=== PATIENT | male | born 1945 | race Caucasian/White ===

== ENCOUNTER → 2016-11-19 | Outpatient (CLI) | payer MEDICARE, OTHER ==
[~2016-11-19] VITALS: Ht 180.3 cm; Wt 95.3 kg
[~2016-11-19] MED LIST: ASPI81TA85 PO; ATOR40TA PO; CART240C PO; CLON-404 PO; HYDR25TAB PO; INSUHUMDS SC; INSULADS INJ; LIDOCAINE 2% INJ 100 MG/5 ML SDV (FOR ANES.) As Ordered ONE; METF-415 PO; OMEP40CA2 PO; PROPOFOL 500 MG/50 ML VIAL As Ordered ONE; RAMI10CA PO; VITA500055 PO; ZYLO300T4 PO
--- NOTE | 2016-11-19 12:42 | ROOR ---
Patient Name: Gentry Rush Procedure Date: 11/19/2016 12:16 PM Date of : 1945 Age: 71 Room: [facility] Gender: Male Note Status: Finalized Procedure: Colonoscopy to Cecum + Cold Snare Polypectomy Indications: Screening for colorectal malignant neoplasm, Last colonoscopy: 2006 Providers: Michael Perez MD Referring MD: Javier Bejarano MD Requesting Provider: Medicines: Monitored Anesthesia Care Complications: No immediate complications. Procedure: Pre-Anesthesia Assessment: - The heart rate, respiratory rate, oxygen saturations, blood pressure, adequacy of pulmonary ventilation, and response to care were monitored throughout the procedure. The Colonoscope was introduced through the anus and advanced to the cecum, identified by appendiceal orifice and ileocecal valve. The colonoscopy was performed without difficulty. The patient tolerated the procedure well. The quality of the bowel preparation was excellent. Findings: The perianal and digital rectal examinations were normal. Non-bleeding internal hemorrhoids were found during retroflexion. The hemorrhoids were Grade I (internal hemorrhoids that do not prolapse). Multiple sessile polyps were found in the mid ascending colon. The polyps were small in size. These polyps were removed with a cold snare. Resection and retrieval were complete. One small localized angioectasia without bleeding was found in the cecum. Scattered small-mouthed diverticula were found in the recto-sigmoid colon, sigmoid colon and descending colon. The exam was otherwise without abnormality on direct and retroflexion views. Impression: - Non-bleeding internal hemorrhoids. - Multiple small polyps in the mid ascending colon, removed with a cold snare. Resected and retrieved. - One non-bleeding colonic angioectasia. - Diverticulosis in the recto-sigmoid colon, in the sigmoid colon and in the descending colon. - The examination was otherwise normal on direct and retroflexion views. - The exam was otherwise normal to the cecum. Recommendation: - Patient has a contact number available for emergencies. The signs and symptoms of potential delayed complications were discussed with the patient. Return to normal activities tomorrow. Written discharge instructions were provided to the patient. - High fiber diet. - Discharge patient to home. - Continue present medications. - Await pathology results. - Telephone GI clinic for pathology results in 1 week. - Repeat colonoscopy for surveillance based on pathology results. - Return to referring physician. - The findings and recommendations were discussed with the patient's family. Michael Perez MD Michael Perez MD 11/19/2016 12:42:00 PM This report has been signed electronically. Number of Addenda: 0 Note Initiated On: 11/19/2016 12:16 PM Estimated Blood Loss: Estimated blood loss: none.
[2016-11-19 13:00] VITALS: BP 128/71
== END ==
LOC: M OPP 11:33
PROVIDERS: ATTEND Internal Medicine Gastroenterology
DX: Z12.11 Encounter for screening for malignant neoplasm of colon (principal); K64.0 First degree hemorrhoids; D12.2 Benign neoplasm of ascending colon; K55.20 Angiodysplasia of colon without hemorrhage; K57.30 Diverticulosis of large intestine without perforation or abscess without bleeding; I10 Essential (primary) hypertension; E78.00 Pure hypercholesterolemia, unspecified; E11.9 Type 2 diabetes mellitus without complications; R12 Heartburn; M19.90 Unspecified osteoarthritis, unspecified site; N40.0 Benign prostatic hyperplasia without lower urinary tract symptoms; Z79.82 Long term (current) use of aspirin; Z79.84 Long term (current) use of oral hypoglycemic drugs; Z79.4 Long term (current) use of insulin; Z79.899 Other long term (current) drug therapy

== ENCOUNTER → 2017-06-09 | Outpatient (REF) | payer OTHER ==
[~2017-06-09] MED LIST changes: -ATOR40TA PO; +ATOR40TA75 PO; -CART240C PO; +CART240C3 PO; -CLON-404 PO; +CLON0.3T PO; -LIDOCAINE 2% INJ 100 MG/5 ML SDV (FOR ANES.) As Ordered ONE; -PROPOFOL 500 MG/50 ML VIAL As Ordered ONE
== END ==
LOC: M LAB REF 15:02
PROVIDERS: ATTEND Surgery
DX: C44.619 Basal cell carcinoma of skin of left upper limb, including shoulder (principal)

== ENCOUNTER 2018-03-26 05:50 | Day surgery (SDC) | payer OTHER ==
[2018-03-26 06:43] LABS: BEDSIDE GLUCOSE 181 MG/DL (83-110)
[2018-03-26] MEDS ORDERED: LIDOCAINE 2% INJ 100 MG/5 ML SDV (FOR ANES.) As Ordered (07:13)
[2018-03-26] MEDS ORDERED: ONDANSETRON 4MG/2ML VIAL (J2405) As Ordered (07:13)
[2018-03-26] MEDS ORDERED: PROPOFOL 200 MG/20 ML VIAL As Ordered ×5 (07:13→11:34)
[2018-03-26] MEDS ORDERED: fentaNYL 100 MCG/2 ML INJECTION (J3010) As Ordered (07:14)
[2018-03-26] MEDS ORDERED: MIDAZOLAM INJ 2 MG/2 ML VIAL (J2250) As Ordered (07:14)
[2018-03-26] MEDS: BUPIVACAINE HCL 0.5% 30 ML VIAL As Ordered (07:39)
[2018-03-26] MEDS: LIDOCAINE 2% MDV 20 ML VIAL As Ordered (07:39)
[2018-03-26] MEDS: BACITRACIN PWD 50,000 UNITS VIAL As Ordered (08:05)
[2018-03-26] MEDS: NEOSPORIN GU IRRIG 20 ML VIAL As Ordered (08:06)
[2018-03-26] MEDS: dexameTHASONE 4 MG/ML 1ML VIAL (J1100) As Ordered (08:07)
[2018-03-26 08:35] LABS: BEDSIDE GLUCOSE 166 MG/DL (83-110)
[2018-03-26] MEDS ORDERED: ONDANSETRON 4MG/2ML VIAL (J2405) IV (10:15)
[2018-03-26] MEDS ORDERED: NORCO, ANEXSIA 5/325MG TABLET (HYDROcodone/ACETAMINOPHEN) PO (10:15)
[2018-03-26] MEDS ORDERED: LR 1,000 ML IV (10:15)
[2018-03-26] MEDS ORDERED: ePHEDrine SULFATE 25 MG/5 ML(5MG/ML) SYRINGE As Ordered (11:00)
== END 2018-03-26 10:42 | disposition home or self-care (01) ==
LOC: M SDC 05:50
DX: M20.5X2 Other deformities of toe(s) (acquired), left foot (principal); E10.621 Type 1 diabetes mellitus with foot ulcer; E10.51 Type 1 diabetes mellitus with diabetic peripheral angiopathy without gangrene; B35.1 Tinea unguium; M20.22 Hallux rigidus, left foot; I10 Essential (primary) hypertension; E78.00 Pure hypercholesterolemia, unspecified; M10.9 Gout, unspecified; K21.9 Gastro-esophageal reflux disease without esophagitis; M12.9 Arthropathy, unspecified; N40.0 Benign prostatic hyperplasia without lower urinary tract symptoms; Z79.899 Other long term (current) drug therapy; Z79.82 Long term (current) use of aspirin; Z79.4 Long term (current) use of insulin; Z96.1 Presence of intraocular lens
CPT/HCPCS: 28750

== ENCOUNTER 2019-07-24 10:53 | Day surgery (SDC) | payer OTHER ==
[~2019-07-24] VITALS: Ht 175.3 cm; Wt 92.7 kg
[~2019-07-24 10:53] MED LIST changes: +INSULADS; -INSULADS INJ; -OMEP40CA2 PO; +OMEP40CA97 PO; -RAMI10CA PO; +RAMI1CAP26 PO; -ZYLO300T4 PO; +ZYLO300T6 PO
[2019-07-24] MEDS ORDERED: TRES1INJ SC (11:09)
--- NOTE | 2019-07-24 11:57 | REP ---
RIGHT KNEE SERIES: Five views. HISTORY: Trauma. FINDINGS: Five views of the right knee show vascular calcification. There is prominent spurring at the quadriceps tendon insertion on the superior pole patella and there is a soft tissue ossicle at the musculotendinous junction of the quadriceps tendon. There is fragmented spurring at the patellar tendon insertion distally on the anterior tibial apophysis. A normal fabella is noted posterolaterally. 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 There is no evidence of fracture or subluxation. IMPRESSION: No traumatic abnormality noted. Vascular calcification. 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 There is also a small ossicle at the patellar tendon insertion on the anterior tibial apophysis. Electronically Signed by Quinn Hankins MD 07/24/2019 12:17 P
[2019-07-24] MEDS ORDERED: CLON-412 PO (13:50)
[2019-07-24] MEDS ORDERED: PROBCAP14 PO (13:50)
[2019-07-24] MEDS ORDERED: METF-839 PO (13:50)
[2019-07-24] MEDS ORDERED: INSUHUMDS SC (13:50)
[2019-07-24] MEDS ORDERED: D3 U5000 PO (13:50)
[2019-07-24] MEDS: NS 1,000 ML IV SCH ×2 (13:56→21:42)
[2019-07-24] MEDS ORDERED: LIDOCAINE 2% INJ 100 MG/5 ML SDV (FOR ANES.) As Ordered ONE (13:58)
[2019-07-24] MEDS ORDERED: PROPOFOL 200 MG/20 ML VIAL As Ordered ONE (13:58)
[2019-07-24] MEDS ORDERED: fentaNYL 100 MCG/2 ML INJECTION (J3010) As Ordered ONE ×2 (13:59→14:57)
[2019-07-24] MEDS ORDERED: dexameTHASONE 4 MG/ML 1ML VIAL (J1100) As Ordered ONE (13:59)
[2019-07-24] MEDS ORDERED: ONDANSETRON 4MG/2ML VIAL (J2405) As Ordered ONE (13:59)
[2019-07-24] MEDS ORDERED: ONDANSETRON 4MG/2ML VIAL (J2405) IV PRN ×2 (14:30→16:30)
[2019-07-24] MEDS ORDERED: ACETAMINOPHEN TAB 650MG DOSE (2X325MG) PO PRN (14:30)
[2019-07-24] MEDS ORDERED: traMADol 50 MG TAB PO PRN ×2 (14:30)
[2019-07-24] MEDS ORDERED: BUPIVACAINE/EPIN 0.5% 30 ML VIAL As Ordered ONE (14:35)
[2019-07-24] MEDS ORDERED: ceFAZolin 2 GM/D5W 50 ML IV BAG (J0690 PER 500MG) As Ordered ONE (14:35)
[2019-07-24] MEDS ORDERED: LIDOCAINE 1% SDV INJ 30 ML VIAL As Ordered ONE (14:35)
[2019-07-24] MEDS ORDERED: DEXTROSE 50% 50 ML SYRINGE IV PRN (14:45)
[2019-07-24] MEDS ORDERED: GLUCAGON FOR INJ 1 MG VIAL (J1610) SC PRN (14:45)
[2019-07-24] MEDS ORDERED: GLUCOSE 4 GM CHEW TABLET PO PRN (14:45)
[2019-07-24] MEDS ORDERED: ePHEDrine SULFATE 25 MG/5 ML(5MG/ML) SYRINGE As Ordered ONE (15:18)
[2019-07-24] MEDS ORDERED: ACETAMINOPHEN 1000MG 100ML IV BTL (OFIRMEV) (J0131 PER 10MG) As Ordered ONE (15:27)
[2019-07-24] MEDS ORDERED: MEPERIDINE INJ 25 MG/ML VIAL (J2175) IV PRN (16:30)
[2019-07-24] MEDS ORDERED: fentaNYL 100 MCG/2 ML INJECTION (J3010) IV PRN (16:30)
[2019-07-24] MEDS ORDERED: PERCOCET 5MG/325MG TAB PO PRN (16:30)
[2019-07-24] MEDS ORDERED: METOCLOPRAMIDE INJ 10MG/2ML VIAL (J2765) IV PRN (16:30)
[2019-07-24] MEDS ORDERED: LR 1,000 ML IV SCH (16:30)
[2019-07-24 16:45] VITALS: BP 156/62
[2019-07-24] MEDS: HumaLOG INSULIN (NovoLOG) PER UNIT SC SCH (17:17)
[2019-07-24] MEDS ORDERED: allopurinoL 300 MG TAB PO SCH (18:00)
[2019-07-24 18:50] VITALS: BP 135/63
[2019-07-24 20:00] VITALS: BP 155/66
[2019-07-24] MEDS ORDERED: HumaLOG INSULIN (NovoLOG) PER UNIT SC SCH (21:00)
[2019-07-24] MEDS: RAMIPRIL 5 MG CAP PO SCH (21:42)
[2019-07-24 22:00] VITALS: BP 162/72
[2019-07-24 23:00] VITALS: BP 165/70
[2019-07-25 04:00] VITALS: BP 169/81
[2019-07-25] MEDS: NS 1,000 ML IV SCH ×2 (05:07→09:36)
[2019-07-25] MEDS ORDERED: TRAM50TA2 PO (06:55)
[2019-07-25] MEDS ORDERED: KETOROLAC 30 MG/ML VIAL (J1885) IV PRN (08:00)
[2019-07-25 08:21] VITALS: BP 189/89
[2019-07-25 08:25] VITALS: BP 189/89
[2019-07-25] MEDS: RAMIPRIL 5 MG CAP PO SCH (08:25)
[2019-07-25] MEDS ORDERED: hydroCHLOROthiazide 25 MG TAB PO SCH (09:00)
[2019-07-25] MEDS ORDERED: ASPIRIN 81 MG ENTERIC TAB PO SCH (09:00)
[2019-07-25] MEDS ORDERED: OMEPRAZOLE 20 MG CAP PO SCH (09:00)
[2019-07-25] MEDS: HumaLOG INSULIN (NovoLOG) PER UNIT SC SCH ×2 (09:10→12:48)
[2019-07-25 10:00] VITALS: BP 162/83
--- NOTE | 2019-07-25 13:34 | RO ---
DATE OF PROCEDURE: 07/24/2019 PREOPERATIVE DIAGNOSIS: Right knee quadriceps tendon rupture. POSTOPERATIVE DIAGNOSIS: Right knee quadriceps tendon rupture. PROCEDURE PERFORMED: Right knee quadriceps tendon repair. SURGEON: Dr. Dom Garcia CREW SUPERVISOR: None. ANESTHESIA PROVIDER: Dr. Cooper ANESTHESIA GIVEN: Laryngeal mask airway (LMA), general anesthesia and local. ESTIMATED BLOOD LOSS: 50 mL. ANTIBIOTICS: 2 grams Ancef given within 1 hour of incision. MATERIALS SENT TO LAB: None. COMPLICATIONS: None. INDICATIONS FOR PROCEDURE: Gentry Rush is a 74-year-old male who sustained a mechanical fall earlier today, felt immediate pain in his knee and difficulty walking. He presented to the emergency department where he was found to have a complete quadriceps tendon rupture. He was unable to perform a straight leg raise. There was a palpable defect to the superior pole of the patella and patella baja on radiographs. Given that the operating room (OR) was immediately available and his nothing by mouth (n.p.o.) status was adequate, we elected to proceed immediately with surgery. I did genetic counsellor the patient on the risks, benefits, indications, and alternatives for operative versus nonoperative management and recommended open quadriceps tendon repair. I counseled the patient that I will be his operating surgeon, but his followup care will be conducted by [facility]. He expressed understanding with the plan and all questions were answered. Informed consent was obtained. INTRAOPERATIVE FINDINGS: The patient had a complete quadriceps tendon rupture, avulsed off the superior pole of the patella with extension to the medial and lateral retinaculum. DESCRIPTION OF PROCEDURE: The patient was identified in the preop holding area where the surgical site was marked. He was then brought to the operating room, where he was placed under LMA and general anesthesia. He was positioned supine on a regular table with all bony prominences appropriately padded. Sequential compressive device (SCD) was placed on nonoperative extremity for deep venous thrombosis (DVT) prophylaxis. He was then prepped and draped in usual sterile fashion. A final time-out was performed. I made a 10 cm incision centered over the superior pole patella extending proximally and distally. I dissected through skin and subcutaneous tissue. Identified the paratenon layer and incised it and identified the quadriceps tendon rupture. Residual tendon was cleared and the bone bed of the superior pole of the patella was prepared for repair. I used a rongeur to prepare the superior pole of the patella for bone to tendon healing. I then using a #2 FiberWire performed [place] sutures with two [place]ala sutures running up and down the medial and lateral aspects of the quadriceps tendon respectively, resulting in four strands emanating from the inferior aspect of the repair. I then used three beath pins centered in the medial, lateral and middle aspects of the patella. I then drilled these through the patella exiting inferiorly. I then took the two middle sutures and brought them out through the middle drill hole, the medial suture through the medial drill and the lateral suture through the lateral drill hole. I then tied the medial suture to one of the middle sutures followed by same the thing with the lateral suture, performing the repair with the knee in full extension. After completing the tying the sutures over the inferior pole of the patella, I then brought the knee through passive range of motion and I was able to range the knee to 90 degrees of passive flexion with no gapping at the repair site. After this I then irrigated the knee joint thoroughly with normal saline. I closed the medial and lateral retinacular layers with running #0 Vicryl suture. I then closed the paratenon layer with a running #0 Vicryl suture. The subcutaneous layer was closed with interrupted #2-0 Vicryl suture in interrupted fashion followed by jake for the skin. I injected 20 mL of a mixture of 1% lidocaine and 0.5% Marcaine with epinephrine into the wound for local pain control. Jake were used to close the wound. Sterile dressings were applied, followed by placement into a knee immobilizer. This ended the procedure, and I was present and scrubbed in for all portions of the case. POSTOPERATIVE PLAN: The patient will go to the hospital floor for physical therapy and pain control. He will be weightbearing as tolerated in a knee immobilizer. He will resume all of his home preop meds to include aspirin 81 mg for deep venous thrombosis (DVT) prophylaxis and will be discharged in the morning after physical therapy. OSMANY
== END 2019-07-25 13:31 | disposition home or self-care (01) ==
LOC: EDBD 10:53 → M ED 10:53 → M SDC 10:54 → ENRESERV 14:02 → M MSPAV 16:43 → M SDC 07-25 13:31
PROVIDERS: ATTEND Orthopaedic Surgery
DX: S76.101A Unspecified injury of right quadriceps muscle, fascia and tendon, initial encounter (principal); W00.0XXA Fall on same level due to ice and snow, initial encounter; Y92.014 Private driveway to single-family (private) house as the place of occurrence of the external cause; Y93.9 Activity, unspecified; Y99.9 Unspecified external cause status; I10 Essential (primary) hypertension; E78.49 Other hyperlipidemia; E11.9 Type 2 diabetes mellitus without complications; K21.9 Gastro-esophageal reflux disease without esophagitis; N40.0 Benign prostatic hyperplasia without lower urinary tract symptoms; M10.9 Gout, unspecified; Z79.4 Long term (current) use of insulin; Z79.84 Long term (current) use of oral hypoglycemic drugs; Z79.82 Long term (current) use of aspirin; Z79.899 Other long term (current) drug therapy
CPT/HCPCS: 27385; 73564; 96374; 97116; 97161; 99285; J0131; J0690; J1100; J1885; J2405; J3010

== ENCOUNTER → 2020-06-26 | Outpatient (REF) | payer OTHER ==
[~2020-06-26] MED LIST changes: -ASPI81TA85 PO; +ASPI81TA86 PO; +CLON-412 PO; +D3 U5000 PO; +METF-839 PO; +PROBCAP14 PO; +TRAM50TA2 PO; +TRES1INJ SC
== END ==
LOC: M LAB REF 09:23
PROVIDERS: ATTEND Dermatology
DX: C44.42 Squamous cell carcinoma of skin of scalp and neck (principal)

== ENCOUNTER → 2020-11-27 | Outpatient (REF) | payer MEDICARE, OTHER ==
[~2020-11-27] MED LIST changes: +HYDR-3490 PO; -HYDR25TAB PO
== END ==
LOC: M LAB REF 09:53
PROVIDERS: ATTEND Dermatology
DX: D04.4 Carcinoma in situ of skin of scalp and neck (principal)

== ENCOUNTER → 2021-08-29 | Outpatient (CLI) | payer MEDICARE ==
[~2021-08-29] MED LIST changes: +OMEP40CA4 PO; -OMEP40CA97 PO
== END ==
LOC: M RAD 11:42
PROVIDERS: ATTEND Internal Medicine Gastroenterology
DX: R68.81 Early satiety (principal); Z12.11 Encounter for screening for malignant neoplasm of colon
CPT/HCPCS: 78264; A9541

== ENCOUNTER → 2021-09-11 | Outpatient (CLI) | payer MEDICARE ==
[~2021-09-11] MED LIST changes: +ALLO10TA PO; +ASPI81TA26 PO
== END ==
LOC: M LABSMTC 09:38
PROVIDERS: ATTEND Anesthesiology
DX: Z01.812 Encounter for preprocedural laboratory examination (principal); Z20.822 Contact with and (suspected) exposure to COVID-19

== ENCOUNTER 2021-09-16 08:48 | Day surgery (SDC) | payer MEDICARE ==
[~2021-09-16] VITALS: Ht 175.3 cm; Wt 93.0 kg
[~2021-09-16 08:48] MED LIST changes: +LIDOCAINE 2% 100MG/5ML SDV (FOR ANES.) As Ordered ONE; +NS 1,000 ML IV ONE; +fentaNYL 100 MCG/2 ML INJECTION As Ordered ONE; +propofoL 500 MG/50 ML VIAL As Ordered ONE
[2021-09-16 10:22] VITALS: BP 156/76
== END 2021-09-16 10:23 | disposition home or self-care (01) ==
LOC: M OPP 08:48
PROVIDERS: ATTEND Internal Medicine Gastroenterology
DX: Z12.11 Encounter for screening for malignant neoplasm of colon (principal); Z86.010 Personal history of colon polyps; D12.6 Benign neoplasm of colon, unspecified; K57.30 Diverticulosis of large intestine without perforation or abscess without bleeding; K64.0 First degree hemorrhoids; K22.89 Other specified disease of esophagus; K22.70 Barrett's esophagus without dysplasia; R12 Heartburn; Z79.4 Long term (current) use of insulin; Z79.82 Long term (current) use of aspirin; Z79.891 Long term (current) use of opiate analgesic; Z79.899 Other long term (current) drug therapy; Z91.048 Other nonmedicinal substance allergy status
CPT/HCPCS: 43239; 45385; 88305; J3010

== ENCOUNTER → 2022-06-05 | Outpatient (CLI) | payer MEDICARE ==
[~2022-06-05] MED LIST changes: -LIDOCAINE 2% 100MG/5ML SDV (FOR ANES.) As Ordered ONE; -NS 1,000 ML IV ONE; -fentaNYL 100 MCG/2 ML INJECTION As Ordered ONE; -propofoL 500 MG/50 ML VIAL As Ordered ONE
== END ==
LOC: M PLAIMG 12:23
PROVIDERS: ATTEND Family Medicine
DX: M54.50 Low back pain, unspecified (principal)

== ENCOUNTER → 2022-06-19 | Outpatient (CLI) | payer MEDICARE ==
[~2022-06-19] MED LIST changes: +GASTROGRAFIN SOLUTION 30ML As Ordered ONE
== END ==
LOC: M RAD 11:59
PROVIDERS: ATTEND Family Medicine
DX: R10.9 Unspecified abdominal pain (principal)
CPT/HCPCS: 74176; Q9963

== ENCOUNTER → 2022-09-09 | Outpatient (REF) | payer MEDICARE ==
[~2022-09-09] MED LIST changes: -GASTROGRAFIN SOLUTION 30ML As Ordered ONE
[2022-09-09 16:31] LABS: HEMOGLOBIN 12.4 g/dl (13.5-17.5); MEAN CORPUSCULAR HEMOGLOBIN 30.9 pg (27.0-33.0); MEAN CORPUSCULAR HGB CONC 31.8 g/dl (32.0-36.5); MEAN CORPUSCULAR VOLUME 97.3 fl (80.0-96.0); PLATELET COUNT, AUTOMATED 364 10^3/uL (150-450); RED BLOOD COUNT 4.01 10^6/uL (4.30-6.10); WHITE BLOOD COUNT 13.5 10^3/uL (4.0-10.0)
[2022-09-09 17:28] LABS: CALCIUM LEVEL 9.1 MG/DL (8.3-10.6); POTASSIUM SERUM 4.9 MMOL/L (3.5-5.1)
[2022-09-09 20:39] LABS: CREATININE FOR GFR 1.91 MG/DL (0.70-1.30); GLOMERULAR FILTRATION RATE 36.8 (>42)
== END ==
LOC: M LAB REF 14:59
DX: I25.10 Atherosclerotic heart disease of native coronary artery without angina pectoris (principal)

== ENCOUNTER → 2023-01-12 | Outpatient (REF) | payer MEDICARE ==
[2023-01-13 18:20] LABS: TOTAL PROTEIN,RANDOM URINE 45.9 MG/DL (0.0-14.0)
[2023-01-13 18:23] LABS: CREATININE,RANDOM URINE 81.5 MG/DL
[2023-01-13 18:24] LABS: PERCENT SATURATION 14.2 % (19.7-50.0)
[2023-01-13 18:26] LABS: FERRITIN 29.7 NG/ML (10.5-307.3)
== END ==
LOC: M LAB REF 16:57
PROVIDERS: ATTEND Internal Medicine Nephrology
DX: N18.31 Chronic kidney disease, stage 3a (principal); D63.1 Anemia in chronic kidney disease

== ENCOUNTER → 2023-02-23 | Outpatient (REF) | payer MEDICARE | LOC: M LAB REF 17:00 | PROVIDERS: ATTEND Internal Medicine Nephrology | DX: N18.31 Chronic kidney disease, stage 3a (principal) ==

== ENCOUNTER 2023-03-27 07:40 | Outpatient (CLI) | payer MEDICARE ==
[~2023-03-27] VITALS: Ht 175.3 cm; Wt 91.8 kg
[~2023-03-27 07:40] MED LIST changes: +ALBUTEROL SULFATE 2.5MG/0.5ML INH NEB SOLN INH PRN; +EPINEPHrine INJ 1 MG/ML 1ML AMP IM PRN; +NS 1,000 ML IV SCH; +diphenhydrAMINE 50MG/ML VIAL IV PRN; +methylPREDNISolone 125MG 2ML VIAL IV PRN
[2023-03-27 07:50] VITALS: BP 163/76; O2SAT 97
[2023-03-27] MEDS ORDERED: FERRIC CARBOXYMALTOSE INJ 750 MG in NS 250 ML (>50kg) IV ONE ×3 (08:10)
[2023-03-27 10:08] VITALS: BP_SYST 159; BP_DIAS 73; BP_DIAS 97; O2SAT 97
== END 2023-03-27 10:10 ==
LOC: M INFU 07:40
PROVIDERS: ATTEND Internal Medicine Nephrology
DX: E61.1 Iron deficiency (principal)
CPT/HCPCS: 96365; J1439

== ENCOUNTER 2023-04-03 07:30 | Outpatient (CLI) | payer MEDICARE ==
[~2023-04-03] VITALS: Ht 175.3 cm; Wt 92.0 kg
[2023-04-03 07:30] VITALS: BP 141/69; O2SAT 96
[~2023-04-03 07:30] MED LIST changes: -NS 1,000 ML IV SCH
[2023-04-03 07:35] VITALS: BP 141/69; O2SAT 96
[2023-04-03] MEDS ORDERED: NS 1,000 ML IV SCH (07:35)
[2023-04-03] MEDS ORDERED: FERRIC CARBOXYMALTOSE INJ 750 MG in NS 250 ML (>50kg) IV ONE ×3 (07:35)
[2023-04-03 09:20] VITALS: BP 116/60; O2SAT 97
== END 2023-04-03 09:20 | disposition home or self-care (01) ==
LOC: M INFU 07:30
PROVIDERS: ATTEND Internal Medicine Nephrology
DX: E61.1 Iron deficiency (principal); Z91.048 Other nonmedicinal substance allergy status
CPT/HCPCS: 96365; J1439

== ENCOUNTER → 2023-10-08 | Outpatient (REF) | payer MEDICARE ==
[~2023-10-08] MED LIST changes: -ALBUTEROL SULFATE 2.5MG/0.5ML INH NEB SOLN INH PRN; -EPINEPHrine INJ 1 MG/ML 1ML AMP IM PRN; -diphenhydrAMINE 50MG/ML VIAL IV PRN; -methylPREDNISolone 125MG 2ML VIAL IV PRN
== END ==
LOC: M SFHCDERM 13:05
PROVIDERS: ATTEND Nurse Practitioner Family
DX: D04.4 Carcinoma in situ of skin of scalp and neck (principal)

== ENCOUNTER → 2024-01-05 | Outpatient (REF) | payer MEDICARE ==
[~2024-01-05] MED LIST changes: +RAMI10CA64 PO; -RAMI1CAP26 PO
== END ==
LOC: M SFHCDERM 17:19
PROVIDERS: ATTEND Nurse Practitioner Family
DX: D04.4 Carcinoma in situ of skin of scalp and neck (principal)

== ENCOUNTER → 2024-04-13 | Outpatient (REF) | payer MEDICARE | LOC: M SFHCDERM 17:29 | PROVIDERS: ATTEND Dermatology | DX: C44.42 Squamous cell carcinoma of skin of scalp and neck (principal) ==

== ENCOUNTER → 2024-07-01 | Outpatient (CLI) | payer MEDICARE | LOC: M RAD 09:44 | PROVIDERS: ATTEND Internal Medicine Cardiovascular Disease | DX: I71.9 Aortic aneurysm of unspecified site, without rupture (principal) ==

== ENCOUNTER 2024-11-23 16:17 | Emergency (ER) | payer MEDICARE ==
[~2024-11-23] VITALS: Ht 175.3 cm; Wt 90.9 kg
[2024-11-23] MEDS: METOPROLOL TART 25 MG TABLET PO ONE ×3 (16:48→21:08)
[2024-11-23] MEDS: METOPROLOL 5 MG/5 ML VIAL IV SCH (16:49)
[2024-11-23 16:50] LABS: BASO # 0.1 10^3/uL (0.0-0.2); BASO % 0.6 % (0.0-1.0); EOS # 0.1 10^3/uL (0.0-0.5); EOS % 1.5 % (0.0-3.0); HEMATOCRIT 47.7 % (42.0-52.0); HEMOGLOBIN 15.9 g/dl (13.5-17.5); LYMPH # 2.4 10^3/uL (1.5-5.0); LYMPH % 27.9 % (24.0-44.0); MEAN CORPUSCULAR HEMOGLOBIN 31.3 pg (27.0-33.0); MEAN CORPUSCULAR HGB CONC 33.3 g/dl (32.0-36.5); MEAN CORPUSCULAR VOLUME 93.9 fl (80.0-96.0); MONO # 0.7 10^3/uL (0.0-0.8); MONO % 7.5 % (2.0-8.0); NEUTROPHILS # 5.4 10^3/uL (1.5-8.5); NEUTROPHILS % 61.7 % (36.0-66.0); PLATELET COUNT, AUTOMATED 222 10^3/uL (150-450); RED BLOOD COUNT 5.08 10^6/uL (4.30-6.10); WHITE BLOOD COUNT 8.8 10^3/uL (4.0-10.0)
[2024-11-23 17:05] LABS: INR 0.93; PROTHROMBIN TIME 12.8 SECONDS (12.5-14.5)
[2024-11-23 17:23] LABS: ALBUMIN 4.4 G/DL (3.2-5.2); BILIRUBIN,DIRECT 0.1 MG/DL (<0.4); BILIRUBIN,TOTAL 0.4 MG/DL (0.3-1.2); CALCIUM LEVEL 10.2 MG/DL (8.3-10.6); CREATININE FOR GFR 1.52 MG/DL (0.70-1.30); GLOMERULAR FILTRATION RATE 46.9 (>42); POTASSIUM SERUM 4.7 MMOL/L (3.5-5.1)
[2024-11-23] MEDS: NS 500 ML IV ONE (18:26)
[2024-11-23 19:30] VITALS: TEMP 97.5
[2024-11-23 21:08] VITALS: BP 140/101
[2024-11-23] MEDS ORDERED: TAMS1CAP17 PO (21:51)
[2024-11-23] MEDS ORDERED: AMLO1TAB25 PO (21:51)
[2024-11-23] MEDS ORDERED: SPIR-10 PO (21:51)
[2024-11-23] MEDS ORDERED: ALLO300T2 PO (21:51)
[2024-11-23] MEDS ORDERED: CEPH500C PO (21:51)
[2024-11-23] MEDS ORDERED: RAMI2.5C42 PO (21:51)
[2024-11-23] MEDS ORDERED: HOME MED LIST COMPLETE! XX SCH (21:55)
[2024-11-23 22:00] VITALS: BP 147/78; O2SAT 95
[2024-11-23] MEDS ORDERED: METO1TAB7 PO (22:22)
[2024-11-23] MEDS ORDERED: ELIQ5TAB PO (22:22)
[2024-11-23] MEDS: APIXABAN 5 MG TAB (ELIQUIS) PO ONE (22:46)
== END 2024-11-23 23:01 | disposition home or self-care (01) ==
LOC: M ED 16:17 → EDBD 16:17 → M ED 23:01
DX: I48.92 Unspecified atrial flutter (principal); E11.9 Type 2 diabetes mellitus without complications; I10 Essential (primary) hypertension; Z91.09 Other allergy status, other than to drugs and biological substances; Z79.1 Long term (current) use of non-steroidal anti-inflammatories (NSAID); Z79.01 Long term (current) use of anticoagulants; Z79.4 Long term (current) use of insulin; Z79.899 Other long term (current) drug therapy

== ENCOUNTER → 2024-11-28 | Outpatient (CLI) | payer MEDICARE ==
[~2024-11-28] MED LIST changes: +ALLO300T2 PO; +AMLO1TAB25 PO; +CEPH500C PO; +ELIQ5TAB PO; +METO1TAB7 PO; +RAMI2.5C42 PO; +SPIR-10 PO; +TAMS1CAP17 PO
== END ==
LOC: M RAD 12:31
PROVIDERS: ATTEND Internal Medicine Cardiovascular Disease
DX: I10 Essential (primary) hypertension (principal)